=== PATIENT | female | born 1985 | race Caucasian/White ===

== ENCOUNTER 2017-08-16 11:18 | Emergency (ER) | payer SELFPAY ==
[2017-08-16] MEDS ORDERED: KETOROLAC TROMETHAMINE 30 MG/ML SOL IV ONE (11:52)
[2017-08-16 12:08] LABS: BASOPHILS % (AUTO) 1 % (0-3); EOSINOPHILS % (AUTO) 1 % (0-9); HEMATOCRIT 40 % (35-47); MEAN CORPUSCULAR HGB CONC 36.1 gm/dl (32.0-36.0); MEAN CORPUSCULAR VOLUME 83 fL (81-99); MONOCYTES % (AUTO) 6.3 % (0-12); NEUTROPHILS % (AUTO) 70.2 % (37-80)
[2017-08-16 12:10] VITALS: RESP 18; TEMP 98.2
[2017-08-16] MEDS ORDERED: KETOROLAC TROMETHAMINE 30 MG/ML SOL ONE (12:12)
[2017-08-16 12:22] LABS: ALBUMIN 4.2 gm/dl (3.4-5.0); CALCIUM 8.5 mg/dl (8.5-10.1); POTASSIUM 3.7 mMol/L (3.5-5.1)
[2017-08-16 12:39] LABS: APPEARANCE,URINE Clear; BILIRUBIN,URINE NEGATIVE (NEGATIVE); COLOR,URINE Yellow; GLUCOSE, URINE (UA) NEGATIVE (NEGATIVE); KETONES,URINE NEGATIVE (NEGATIVE); LEUKOCYTE ESTERASE ,URINE NEGATIVE (NEGATIVE); NITRATE,URINE NEGATIVE (NEGATIVE); OCCULT BLOOD,URINE TRACE INTACT (NEG-TRACE); PH,URINE 5.5; UROBILINOGEN,URINE 0.2 (0.2-1.0 EU)
[2017-08-16 12:46] LABS: RBC,URINE NEG (0-3AV/HPF); WBC,URINE 0-1 (0-5AV/HPF)
[2017-08-16 14:52] VITALS: BP 112/65; PULSE 67; O2SAT 99
== END 2017-08-16 13:35 | disposition home or self-care (01) | DRG 761 ==
LOC: ED 11:18
DX: N94.6 Dysmenorrhea, unspecified (principal)
CPT/HCPCS: 80053; 81001; 84703; 85025; 96374; 99283; J1885

== ENCOUNTER 2017-09-08 11:32 | Outpatient (CLI) | payer SELFPAY ==
[2017-08-16 14:52] VITALS: O2SAT 99
== END 2017-09-08 11:33 | disposition home or self-care (01) | DRG 566 ==
LOC: CONVCARE 11:32
PROVIDERS: ATTEND Orthopaedic Surgery
DX: M21.42 Flat foot [pes planus] (acquired), left foot (principal); M19.272 Secondary osteoarthritis, left ankle and foot; M21.6X2 Other acquired deformities of left foot; Z87.76 Personal history of (corrected) congenital malformations of integument, limbs and musculoskeletal system
CPT/HCPCS: 73630

== ENCOUNTER 2017-09-21 10:54 | Emergency (ER) | payer SELFPAY ==
[2017-09-21 11:17] VITALS: BP 121/53; PULSE 77; RESP 18; TEMP 98.3; O2SAT 100
[2017-09-21 11:25] LABS: BASOPHILS % (AUTO) 1 % (0-3); EOSINOPHILS % (AUTO) 1 % (0-9); HEMATOCRIT 35 % (35-47); MEAN CORPUSCULAR HGB CONC 36.8 gm/dl (32.0-36.0); MEAN CORPUSCULAR VOLUME 82 fL (81-99); MONOCYTES % (AUTO) 6.5 % (0-12); NEUTROPHILS % (AUTO) 64.7 % (37-80)
[2017-09-21 11:33] LABS: APPEARANCE,URINE Clear; BILIRUBIN,URINE NEGATIVE (NEGATIVE); COLOR,URINE Yellow; GLUCOSE, URINE (UA) NEGATIVE (NEGATIVE); KETONES,URINE NEGATIVE (NEGATIVE); LEUKOCYTE ESTERASE ,URINE NEGATIVE (NEGATIVE); NITRATE,URINE NEGATIVE (NEGATIVE); OCCULT BLOOD,URINE TRACE INTACT (NEG-TRACE); UROBILINOGEN,URINE 0.2 (0.2-1.0 EU)
[2017-09-21 11:39] LABS: ALBUMIN 4.1 gm/dl (3.4-5.0); CALCIUM 8.7 mg/dl (8.5-10.1)
[2017-09-21 11:46] LABS: RBC,URINE 0-2 (0-3AV/HPF); WBC,URINE NEG (0-5AV/HPF)
== END 2017-09-21 12:55 | disposition home or self-care (01) | DRG 392 ==
LOC: ED 10:54
DX: R10.9 Unspecified abdominal pain (principal); R30.0 Dysuria; R31.9 Hematuria, unspecified; R35.0 Frequency of micturition; R39.15 Urgency of urination
CPT/HCPCS: 36415; 74176; 80053; 81001; 85025; 99282

== ENCOUNTER 2017-10-24 10:39 | Emergency (ER) | payer MEDICAID ==
[2017-10-24 10:40] VITALS: O2SAT 100
[2017-10-24 10:53] VITALS: RESP 18; TEMP 98.1
[2017-10-24] MEDS ORDERED: LORAZEPAM 2 MG/ML SOL IM ONE (11:30)
[2017-10-24] MEDS ORDERED: KETOROLAC TROMETHAMINE 30 MG/ML SOL IM ONE (11:30)
[2017-10-24] MEDS ORDERED: KETOROLAC TROMETHAMINE 30 MG/ML SOL ONE (11:51)
[2017-10-24] MEDS ORDERED: LORAZEPAM 2 MG/ML SOL ONE (11:51)
[2017-10-24 12:11] VITALS: BP 120/70; PULSE 75
== END 2017-10-24 12:08 | disposition home or self-care (01) | DRG 552 ==
LOC: ED 10:39
DX: M54.42 Lumbago with sciatica, left side (principal)
CPT/HCPCS: 99283; J1885; J2060

== ENCOUNTER 2017-10-28 11:18 | Emergency (ER) | payer MEDICAID ==
[2017-10-28 12:00] VITALS: BP 120/83; PULSE 66; RESP 14; TEMP 98.4; O2SAT 99
== END 2017-10-28 12:10 | disposition home or self-care (01) | DRG 607 ==
LOC: ED 11:18
DX: L50.0 Allergic urticaria (principal); T42.4X5A Adverse effect of benzodiazepines, initial encounter
CPT/HCPCS: 99282

== ENCOUNTER 2017-11-02 11:05 | Emergency (ER) | payer MEDICAID ==
[2017-11-02 12:16] VITALS: BP 113/78; PULSE 74; RESP 16; TEMP 98.1; O2SAT 100
== END 2017-11-02 12:27 | disposition home or self-care (01) | DRG 607 ==
LOC: ED 11:05
DX: R21 Rash and other nonspecific skin eruption (principal); F41.9 Anxiety disorder, unspecified; F43.9 Reaction to severe stress, unspecified; M54.5 Low back pain
CPT/HCPCS: 99282

== ENCOUNTER 2017-11-13 15:37 | Emergency (ER) | payer MEDICAID ==
[2017-11-13] MEDS ORDERED: PHENAZOPYRIDINE HYDROCHLORID 100 MG TAB PO ONE (16:01)
[2017-11-13] MEDS ORDERED: KETOROLAC TROMETHAMINE 30 MG/ML SOL IV ONE (16:01)
[2017-11-13] MEDS ORDERED: LEVOFLOXACIN 25 MG/ML 750 MG in SODIUM CHLORIDE 0.9% 250 ML 150 ML IV ONE (16:04)
[2017-11-13] MEDS ORDERED: PROMETHAZINE HYDROCHLORIDE 25 MG/ML SOL IV ONE (16:05)
[2017-11-13 16:11] LABS: BASOPHILS % (AUTO) 1 % (0-3); EOSINOPHILS % (AUTO) 1 % (0-9); HEMATOCRIT 40 % (35-47); MEAN CORPUSCULAR HGB CONC 34.4 gm/dl (32.0-36.0); MEAN CORPUSCULAR VOLUME 83 fL (81-99); MONOCYTES % (AUTO) 6.5 % (0-12); NEUTROPHILS % (AUTO) 72.8 % (37-80)
[2017-11-13] MEDS ORDERED: PROMETHAZINE HYDROCHLORIDE 25 MG/ML SOL ONE (16:13)
[2017-11-13] MEDS ORDERED: KETOROLAC TROMETHAMINE 30 MG/ML SOL ONE (16:13)
[2017-11-13 16:14] LABS: APPEARANCE,URINE Cloudy; BILIRUBIN,URINE NEGATIVE (NEGATIVE); COLOR,URINE Yellow; GLUCOSE, URINE (UA) NEGATIVE (NEGATIVE); KETONES,URINE NEGATIVE (NEGATIVE); LEUKOCYTE ESTERASE ,URINE 1+ (NEGATIVE); NITRATE,URINE POSITIVE (NEGATIVE); OCCULT BLOOD,URINE 2+ (NEG-TRACE)
[2017-11-13] MEDS ORDERED: LEVOFLOXACIN 25 MG/ML SOL IV ONE (16:15)
[2017-11-13 16:33] LABS: ALBUMIN 4.2 gm/dl (3.4-5.0); CALCIUM 8.9 mg/dl (8.5-10.1); POTASSIUM 3.7 mMol/L (3.5-5.1)
[2017-11-13 16:35] LABS: WBC,URINE 80-120 (0-5AV/HPF)
[2017-11-13 17:42] VITALS: TEMP 98.2; O2SAT 100
[2017-11-13 17:43] VITALS: BP 113/79; PULSE 82; RESP 16
== END 2017-11-13 18:34 | disposition home or self-care (01) | DRG 690 ==
LOC: ED 15:37
DX: N10 Acute pyelonephritis (principal); Z87.442 Personal history of urinary calculi
CPT/HCPCS: 80053; 81001; 84703; 85025; 87077; 87088; 87186; 99284; J1885; J1956; J2550

== ENCOUNTER 2018-01-30 12:31 | Emergency (ER) | payer MEDICAID, OTHER ==
[2018-01-30 12:50] VITALS: BP 124/79; PULSE 105; RESP 16; TEMP 97.8; O2SAT 97
[2018-01-30] MEDS ORDERED: KETOROLAC TROMETHAMINE 30 MG/ML SOL IM ONE (12:58)
[2018-01-30] MEDS ORDERED: KETOROLAC TROMETHAMINE 30 MG/ML SOL ONE (12:59)
== END 2018-01-30 13:20 | disposition home or self-care (01) ==
LOC: ED 12:31
DX: M54.30 Sciatica, unspecified side (principal)
CPT/HCPCS: 99282; J1885

== ENCOUNTER 2018-04-14 17:08 | Emergency (ER) | payer SELFPAY ==
[2018-04-14 18:12] VITALS: BP 117/80; PULSE 82; RESP 16; TEMP 98; O2SAT 99
[2018-04-14] MEDS ORDERED: IBUPROFEN 600 MG TAB PO ONE (18:42)
[2018-04-14] MEDS ORDERED: IBUPROFEN 600 MG TAB ONE (19:09)
== END 2018-04-14 19:00 | disposition left against medical advice (07) | DRG 159 ==
LOC: ED 17:08
DX: S03.42XA Sprain of jaw, left side, initial encounter (principal)
CPT/HCPCS: 99282; A9270-GY